=== PATIENT | female | born 1985 | race Asian ===

== ENCOUNTER 2020-07-03 16:12 | Emergency (ER) | payer OTHER ==
[~2020-07-03] VITALS: Ht 157.5 cm; Wt 59.0 kg
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
[2020-07-03] MEDS ORDERED: IBUPROFEN 600 MG TABLET ONE (17:21)
[2020-07-03] MEDS ORDERED: TDAP [DIPH/PERTUSSIS/TET] 0.5 ML VIAL IM ONE (17:22)
[2020-07-03] MEDS: IBUPROFEN 600 MG TABLET PO ONE (17:28)
[2020-07-03] MEDS: TDAP [DIPH/PERTUSSIS/TET] 0.5 ML VIAL IM ONE (17:29)
[2020-07-03] MEDS ORDERED: IBUP-1955 PO (17:41)
[2020-07-03 17:55] VITALS: BP 115/75
== END 2020-07-03 17:55 | disposition home or self-care (01) ==
LOC: ER 16:19
DX: S40.011A Contusion of right shoulder, initial encounter (principal); S50.811A Abrasion of right forearm, initial encounter; J45.909 Unspecified asthma, uncomplicated; Y08.89XA Assault by other specified means, initial encounter; Y93.89 Activity, other specified; Y92.89 Other specified places as the place of occurrence of the external cause; Y99.8 Other external cause status
CPT/HCPCS: 73030-TC; 90715